=== PATIENT | female | born 1960 | race Caucasian/White ===

== ENCOUNTER → 2016-05-28 | Day surgery (SDC) | payer BC ==
[~2016-05-28] MED LIST: ATORVASTATIN CA10 MG PO; CITALOPRAM HBR40 M1 PO; INDERAL40 MG PO; MIMVEY 1-0.5 M1 EACH PO; MIRALAX17 GM PO; SYNTHROID PO
--- NOTE | ~2016-05-28 | OR ---
Unit #: [id number] #: [id number] Patient: ASHLI OLMEDO [id number] [address] [address] [id number] O MR#: [id number] NAME: ASHLI OLMEDO. ROOM: Date of Procedure: 05/28/2016 Admission Date: 05/28/2016 Surgeon: Socrates Reyna M.D. : 1960 Attending Physician: Socrates Reyna M.D. Primary Care Physician: Pepe Mccormack Jr., M.D. OPERATIVE REPORT PRIMARY CARE PHYSICIAN Pepe Mccormack M.D. PREOPERATIVE DIAGNOSES The patient presented for colorectal cancer screening. She has a family history of colon cancer and that her brother had colon cancer at age 46. PROCEDURE PERFORMED Colonoscopy up to cecum with excellent preparation and good visualization. POSTOPERATIVE DIAGNOSES Completely normal examination up to cecum. The quality of prep was excellent. The patient did not have any polyps nor any diverticula or hemorrhoids. RECOMMENDATIONS Repeat colonoscopy in 5 years. SEDATION USED MAC. DESCRIPTION OF PROCEDURE Following detailed explanation of the potential risks and complications of a colonoscopy, namely perforation, bleeding, and complications related to sedation, the patient was brought to GI lab and laid in the left lateral decubitus position. A digital rectal examination was performed, which was normal. Lubricated tip of the Olympus video colonoscope was inserted through the anus and advanced under direct vision. The scope was advanced and passed up to sigmoid into descending colon. No diverticula were seen in this area. The scope tip was then navigated all the way up to cecum with visualization of the ileocecal valve and the appendiceal orifice. Preparation was excellent with good visualization and photodocumentation was obtained. Last several inches of the terminal ileum also visualized after intubation of the ileocecal valve and appeared normal. Successive segments of the colonic mucosa were examined upon withdrawal and appeared unremarkable. There being no polyps, mass lesions, AVMs, or diverticula. The patient did not have any hemorrhoids at anal verge. The scope was then withdrawn. The patient returned to the recovery area. She tolerated the procedure without any postprocedure complications. Dictated by... Unit #: [id number] #: [id number] Patient: SHARA,ASHLIGenaro Brambila TD: 05/29/2016 00:37 JOB #: [id number] OPERATIVE REPORT X Socrates Reyna MD PROCEDURE OPERATIVE NOTE
== END | disposition home or self-care (01) ==
LOC: COPS 06:28
DX: Z12.11 Encounter for screening for malignant neoplasm of colon (principal); E03.9 Hypothyroidism, unspecified; K59.00 Constipation, unspecified; Z80.0 Family history of malignant neoplasm of digestive organs; Z98.51 Tubal ligation status; Z79.899 Other long term (current) drug therapy
CPT/HCPCS: J2250